=== PATIENT | female | born 1980 | race Caucasian/White ===

== ENCOUNTER 2017-01-22 20:17 | Emergency (ER) | payer OTHER ==
[~2017-01-22] VITALS: Ht 162.6 cm; Wt 103.1 kg
[~2017-01-22 20:17] MED LIST: KEFLEX250 MG PO; NOHOMEMEDS
[2017-01-22 20:40] LABS: HEMATOCRIT 43.4 % (36.0-46.0); MCH 30.5 PG (29.0-34.0); MCHC 33.4 G/DL (30.0-36.0); MCV 91.2 FL (83-99); MEAN PLAT.VOLUME 11.1 uM^3 (9.5-12.4); PLATELET COUNT 233 K/uL (156-360); RBC DIS.WIDTH-CV 13.2 % (11.8-14.6); RBC DIS.WIDTH-SD 44.4 % (39-53); RED BLOOD COUNT 4.76 M/uL (3.80-5.20); WHITE BLOOD COUNT 8.8 K/uL (4.1-10.2)
[2017-01-22 20:49] LABS: CHLORIDE 111 mEq/L (99-109); SODIUM 143 mEq/L (136-147)
[2017-01-22 20:51] LABS: GLUCOSE 109 mg/dL (70-99)
[2017-01-22 20:52] LABS: ANION GAP 10 MEQ/L (2-14)
[2017-01-22 20:55] LABS: ALKALINE PHOSPHATASE 70 IU/L (3-129); GFR ESTIMATE (CALCULATED) > 59 mL/min/
[2017-01-22 20:56] LABS: UREA NITROGEN (BUN) 6 mg/dL (9-23)
[2017-01-22 21:01] LABS: ADD MIUA? YES; BILIRUBIN NEGATIVE; BLOOD SMALL; COLOR STRAW ((YELLOW)); GLUCOSE (STRIP) NEGATIVE; KETONES NEGATIVE; LEUKOCYTES NEGATIVE; NITRITE NEGATIVE; PROTEIN (STRIP) NEGATIVE; SPECIFIC GRAVITY 1.006 (1.000-1.030); UROBILINOGEN 0.2 MG/DL (0.2-1.0)
[2017-01-22 21:04] LABS: QUANTITATIVE HCG < 4.0 MIU/ML
[2017-01-22 21:16] LABS: BACTERIA NONE SEEN /HPF; EPITHELIAL CELLS RARE /HPF; MUCUS NONE SEEN /LPF; RED BLOOD CELLS 0-5 /HPF (0-5); UCUL ADDED? NO; WHITE BLOOD CELLS 0-5 /HPF (0-5)
[2017-01-22 21:30] LABS: TOTAL BILIRUBIN 0.3 mg/dL (0.0-1.0)
[2017-01-22 21:48] LABS: LIPASE 109 U/L (1.0-51.0)
[2017-01-22 22:55] LABS: SERUM ETHYL ALCOHOL 207 mg/dL
[2017-01-23] MEDS ORDERED: MOTRIN600 MG PO (02:36)
[2017-01-23 03:01] VITALS: BP 101/62
[2017-01-24 13:37] LABS: CHLAMYDIA TRACHOMATIS NEGATIVE; NEISSERIA GONORRHOEAE NEGATIVE
== END 2017-01-23 03:02 | disposition home or self-care (01) ==
LOC: EME 20:17
PROVIDERS: Emergency Medicine
DX: D25.9 Leiomyoma of uterus, unspecified (principal); F17.200 Nicotine dependence, unspecified, uncomplicated; Z88.0 Allergy status to penicillin; Z88.1 Allergy status to other antibiotic agents
CPT/HCPCS: 74177; 76856; 80053; 81003; 83690; 84702; 85027; 87210; 87491; 87591; 99281; 99285; G0480; J2270; J2405; J7030

== ENCOUNTER 2017-10-02 23:23 | Emergency (ER) | payer OTHER ==
[~2017-10-02] VITALS: Ht 154.9 cm; Wt 90.9 kg
[~2017-10-02 23:23] MED LIST changes: +MOTRIN600 MG PO
[2017-10-02 23:26] VITALS: BP 145/79
== END 2017-10-02 23:37 | disposition left against medical advice (07) ==
LOC: EME 23:23
DX: F10.10 Alcohol abuse, uncomplicated (principal); Z53.21 Procedure and treatment not carried out due to patient leaving prior to being seen by health care provider